=== PATIENT | female | born 1965 | race Caucasian/White ===

== ENCOUNTER 2022-02-12 01:44 | Emergency (ER) | payer OTHER ==
[~2022-02-12] VITALS: Ht 152.4 cm; Wt 68.0 kg
[2022-02-12 01:51] VITALS: BP 164/85
--- NOTE | 2022-02-12 01:54 | NUR ---
TO LOBBY A/W BED AMBULATORY
--- NOTE | 2022-02-12 02:33 | NUR ---
PT TO BED 2
--- NOTE | 2022-02-12 02:44 | NUR ---
PT BIB SELF WITH C/C OF HEAD NUMBNESS X 1 DAY. DENIES ANY TRAUMA, PUPILS PERRL, +NAUSEA, - VOMITING. 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 DOESNT APPEAR TO BE IN DISTRESS. BED LOW AND LOCKED. ALL NEEDS MET. PMHX: HTN NKA
[2022-02-12] MEDS ORDERED: IBUP-2213 PO (03:58)
[2022-02-12 04:01] VITALS: BP 148/81
== END 2022-02-12 04:01 | disposition home or self-care (01) ==
LOC: MED 01:44
DX: R20.0 Anesthesia of skin (principal); I10 Essential (primary) hypertension; Z79.899 Other long term (current) drug therapy
CPT/HCPCS: 81002; 99282